=== PATIENT | male | born 1945 | race Caucasian/White ===

== ENCOUNTER 2023-02-01 13:33 | Outpatient (CLI) | payer MEDICARE, SELFPAY | END 2023-02-01 13:34 | disposition home or self-care (01) | PROVIDERS: PCP Nurse Practitioner Family; Visit Provider Nurse Practitioner Family | DX: R53.83 Other fatigue (principal) | CPT/HCPCS: 80053; 85025 ==

== ENCOUNTER 2023-11-07 09:12 | Outpatient (CLI) | payer MEDICARE, SELFPAY ==
--- NOTE | 2023-11-07 09:15 | CRLHL7_ITS ---
For Patients: As a result of the Century Cures Act, medical imaging exams and procedure reports are released immediately into your electronic medical record. You may view this report before your referring provider. If you have questions, please contact your health care provider. INDICATION: Lump/swelling in the neck. FINDINGS: A an ultrasound of the left upper anterior neck at the patient`s area of concern in the submandibular region shows a 2.1 x 1.6 x 1.0 cm subcutaneous nodule which contains debris and shows mild increased through transmission. No other abnormalities identified. IMPRESSION: Subcutaneous nodule containing heterogeneous debris in show increased through transmission likely represents a sebaceous cyst. Recommend tissue diagnosis for more complete evaluation. Dictated by Santino Daniels MD @ 11/08/2023 10:40:11 AM (Electronically Signed)
== END 2023-11-07 09:13 | disposition home or self-care (01) ==
LOC: US 09:13
PROVIDERS: PCP Nurse Practitioner Family; Visit Provider Nurse Practitioner Family
DX: R22.1 Localized swelling, mass and lump, neck (principal)
CPT/HCPCS: 76536

== ENCOUNTER 2025-03-09 15:05 | Outpatient (CLI) | payer MEDICARE, SELFPAY ==
[2025-03-11 08:58] LABS: Lab Add On Test New Spec Needed
== END 2025-03-09 15:06 | disposition home or self-care (01) ==
PROVIDERS: PCP Nurse Practitioner Family; Visit Provider Nurse Practitioner Family
DX: R79.89 Other specified abnormal findings of blood chemistry (principal); R00.0 Tachycardia, unspecified; R07.9 Chest pain, unspecified; R53.83 Other fatigue
CPT/HCPCS: 80053; 80061; 83735; 84439; 84443; 84484; 85025; 85651; 86140; 86376

== ENCOUNTER 2025-03-16 16:32 | Outpatient (CLI) | payer MEDICARE, SELFPAY | END 2025-03-16 16:33 | disposition home or self-care (01) | PROVIDERS: PCP Nurse Practitioner Family; Visit Provider Nurse Practitioner Family | DX: R00.0 Tachycardia, unspecified (principal); R07.89 Other chest pain | CPT/HCPCS: 86376 ==

== ENCOUNTER 2025-05-26 14:13 | Outpatient (CLI) | payer MEDICARE, SELFPAY ==
[2025-05-26 15:05] VITALS: BP 146/78; PULSE 88; RESP 16
--- NOTE | 2025-05-26 15:07 | W.PM.STED ---
Stress Test Note Date Date of test: 05/26/25 Providers Primary care provider: Darcy Ricks Stress test physician: Miki Diaz Stress Test Note Stress test ordered: Stress Echo Indication for test: Chest pain Stress test medicine: None Results discussion: This very nice patient presents for the above test, after discussion the risks benefits and side effects of the test, patient would like to continue. Cardiac stress test medical history form is reviewed entirely. Pretest EKG shows normal sinus rhythm with a ventricular rate of 82, BP is 126/[address] wave changes are notable. Standard [place] protocol is employed over a time course of 9 minutes 2nd, achieved a metabolic equivalent of 10.5 Mets. Maximum heart rate will of 150, which is 123% of the target. No dysrhythmias are noted, some very mild ST wave changes are noted, not diagnostic of ischemia, and the patient had no typical or atypical symptoms of ischemia. Conditioning was felt to be excellent Impression: negative electrographic portion of stress echo, subjectively negative Follow up suggested: await echo imaging review by Cardiology, clinical correlation with this will be needed, I do not see any gross wall motion abnormalities when I reviewed this with the tech, patient left this testing facility in excellent condition there were no complications.
== END 2025-05-26 14:14 | disposition home or self-care (01) ==
LOC: STRESS 14:14
PROVIDERS: PCP Nurse Practitioner Family; Visit Provider Internal Medicine Cardiovascular Disease
DX: R07.89 Other chest pain (principal); R53.83 Other fatigue; R00.0 Tachycardia, unspecified
CPT/HCPCS: 93016; 93325; 93351